=== PATIENT | male | born 1980 | race Caucasian/White ===

== ENCOUNTER 2018-09-24 08:30 | Emergency (ER) | payer SELFPAY ==
[2018-09-24 08:47] VITALS: BP 124/77
--- NOTE | 2018-09-24 09:30 | ED Physician Documentation ---
Upper Extremity Injury - HISTORIAN Historian: patient - HPI Stated Complaint: R shoulder pain Chief Complaint: Upper Extremity Problem Onset: yesterday Where: home Further Comments: yes (38 year old male patient presents with complaint of right shoulder pain; patient states he was carrying a floor joist, the geovani on the other end dropped his side causing the weight of the joist to pull on his right shoulder. Has been using excedrin and ibuprofen with no relief. Used a sling last night which helped some.) - ROS CONST: no problems CVS/RESP: none NEURO: none MS/SKIN/LYMPH: none GI/: denies: nausea, vomiting - PAST HX Past History: Rt handed Allergies/Adverse Reactions: Allergies Allergy/AdvReac Type Severity Reaction Status Date / Time No Known Allergies Allergy Verified 09/24/18 08:48 Home Medications: Ambulatory Orders Medication Instructions Recorded Ketorolac Tromethamine [Toradol] 10 mg PO TID #15 tablet 09/24/18 - SOCIAL HX Smoking History: cigarettes - FAMILY HX Family History: denies: none - VITAL SIGNS Vital Signs: Vital Signs Temp Pulse Resp BP Pulse Ox 97.2 F L 99 H 16 124/77 99 09/24/18 08:30 09/24/18 09:57 09/24/18 09:57 09/24/18 09:57 09/24/18 09:57 - REVIEWED ASSESSMENTS Nursing Assessment Reviewed: Yes Vitals Reviewed: Yes Progress - Progress Progress: Reviewed xray findings. Discussed possibility of labrum or rotator cuff tear. Will place on 5 day course of NSIAD, rest and ice. Will need to follow up with PCP for further evaluation and treatment. Explained he would likely need an MRI. Patient verbalized understanding. ED Results Lab/Radiology - Radiology Radiology Impressions: Exam: Right shoulder. History: Pain after injury. AP and Y view of the right shoulder are submitted. No fracture or dislocation is identified. No bony erosions are seen. No gretel soft tissue abnormalities are identified. Impression: No acute fracture or dislocation is detected. Electronically signed on Sep 24, 2018 9:19:32 AM SKILLED NURSING FACILITY COUNSELOR by: Issac Gonzales - Orders Orders: ED Orders Category Date Time Status SHOULDER 2 VIEWS OR MORE [RAD] Stat Exams 09/24/18 Completed Ketorolac Tromethamine [Toradol] Med 09/24/18 09:34 Discontinued 60 mg .ROUTE .STK-MED ONE Ketorolac Tromethamine [Toradol] Med 09/24/18 09:33 Discontinued 60 mg IM NOW ONE Upper Extremity Injury Physic - Physical Exam General Appearance: mild distress Hand: non-tender, no evidence of injury, normal ROM, asymmetry (missing 5th finger and thumb from old chain saw injury) Wrist: normal inspection, non-tender, no evidence of injury, normal ROM Elbow/Forearm: normal inspection, non-tender, no evidence of injury, normal ROM Shoulder: limited ROM (cannot fully abduct, extend or flex shoulder joint - vertical extension extremely limited; c/o pain with any ROM), pain (3), soft tissue tenderness, swelling Neuro/Vascular/Tendon: no vascular compromise, motor nml, sensation nml, ROM nml Skin: warm,dry Head/ENT: nml inspection, pharynx nml Resp/CVS: chest non-tender, breath sounds nml, heart sounds nml, no resp. distress, lungs clear, reg. rate & rhythm Discharge Clincal Impression: Internal derangement of right shoulder Right shoulder injury Qualifiers: Encounter type: initial encounter Qualified Code(s): S49.91XA - Unspecified injury of right shoulder and upper arm, initial encounter Prescriptions: Ketorolac Tromethamine [Toradol] 10 mg PO TID #15 tablet Referrals: Primary Doctor,No [Primary Care Provider] - 2 Days Additional Instructions: Ice Rest Elevation You may use Tylenol every 4hour as needed for pain. Limit your dose to less than 4 G per day. Do not take ibuprofen, aleve, naproxen, aspirin or aspirin containing products or any other NSAID while you are on toradol. (ketoralac) You may want to try massage, over the counter lidocaine patches, biofreeze, luis faria or aspercream . Sling as needed for discomfort If you do not have normal range of motion in the shoulder and continuing to have significant pain on day 5-6; see your PCP for re-evaluation and possible MRI. Condition: Stable Disposition: 01 HOME, SELF-CARE Decision to Admit: NO Decision Time: 09:44
[2018-09-24] MEDS ORDERED: KETOROLAC TROMETHAMINE 60 MG/2 ML VIAL IM ONE (09:33)
[2018-09-24] MEDS ORDERED: KETOROLAC TROMETHAMINE 60 MG/2 ML VIAL ONE (09:34)
--- NOTE | 2018-09-24 11:16 | Diagnostic Imaging Report ---
AURE ENCISO (MARINE SERVICE OPERATOR) - ER [facility] [address] [id number] Report Submission Date: Sep 24, 2018 9:19:32 AM COMPLIANCE EXAMINER Patient Study Name: ISRAEL BARTH Date: Sep 24, 2018 8:51:59 AM COMPLIANCE EXAMINER Modality Type: DX Gender: M Description: SHOULDER 2 VIEWS OR MORE : 78 Institution: [facility] Physician: AURE ENCISO) - ER Exam: Right shoulder. History: Pain after injury. AP and Y view of the right shoulder are submitted. No fracture or dislocation is identified. No bony erosions are seen. No gretel soft tissue abnormalities are identified. Impression: No acute fracture or dislocation is detected. Electronically signed on Sep 24, 2018 9:19:32 AM COMPLIANCE EXAMINER by: Issac VANESSA
== END 2018-09-24 09:57 | disposition home or self-care (01) ==
LOC: ED 08:30
DX: S49.91XA Unspecified injury of right shoulder and upper arm, initial encounter (principal); M24.811 Other specific joint derangements of right shoulder, not elsewhere classified; X58.XXXA Exposure to other specified factors, initial encounter; Y93.89 Activity, other specified; Y92.009 Unspecified place in unspecified non-institutional (private) residence as the place of occurrence of the external cause
CPT/HCPCS: 73030; 96372; 99283; J1885